=== PATIENT | female | born 1995 | race African-American/Black ===

== ENCOUNTER 2021-12-15 14:29 | Emergency (ER) | payer OTHER ==
[~2021-12-15] VITALS: Ht 160 cm; Wt 81.6 kg
[2021-12-15] MEDS ORDERED: DUI500 PO (17:11)
== END 2021-12-15 17:58 | disposition home or self-care (01) ==
LOC: ER 14:29
DX: S61.211A Laceration without foreign body of left index finger without damage to nail, initial encounter (principal); W45.8XXA Other foreign body or object entering through skin, initial encounter; Y93.9 Activity, unspecified; Y92.9 Unspecified place or not applicable; Y99.9 Unspecified external cause status

== ENCOUNTER 2021-12-22 13:29 | Emergency (ER) | payer OTHER ==
[~2021-12-22] VITALS: Ht 160 cm; Wt 81.6 kg
[~2021-12-22 13:29] MED LIST: DUI500 PO
== END 2021-12-22 16:54 | disposition home or self-care (01) ==
LOC: ER 13:29
DX: Z48.02 Encounter for removal of sutures (principal)

== ENCOUNTER 2025-01-08 17:07 | Emergency (ER) | payer OTHER ==
[~2025-01-08] VITALS: Ht 160 cm; Wt 91.2 kg
[2025-01-08] MEDS ORDERED: CEFTRIAXONE SODIUM 1,000 MG VIAL ONE (18:20)
[2025-01-08] MEDS ORDERED: CEFTRIAXONE SODIUM 1,000 MG VIAL IM STA (18:20)
== END 2025-01-08 18:31 | disposition home or self-care (01) ==
LOC: ER 17:07
DX: S61.451A Open bite of right hand, initial encounter (principal); W55.01XA Bitten by cat, initial encounter; Y93.89 Activity, other specified; Y92.89 Other specified places as the place of occurrence of the external cause; Y99.8 Other external cause status; Z88.6 Allergy status to analgesic agent